=== PATIENT | male | born 1980 | race Caucasian/White ===

== ENCOUNTER 2017-06-13 19:25 | Emergency (ER) | payer SELFPAY ==
[~2017-06-13] VITALS: Ht 167.6 cm; Wt 86.4 kg
[2017-06-13] MEDS ORDERED: OxyCODONE HCL/ACETAMINOPHEN 5-325 MG TABLET PO ONE (21:00)
[2017-06-13] MEDS ORDERED: LIDOCAINE HCL 1%/EPI 1:200,000/PF 10 ML VIAL INJ ONE (21:00)
[2017-06-13] MEDS ORDERED: CLINDAMYCIN HCL 150 MG CAPSULE PO ONE (21:00)
[2017-06-13 21:22] VITALS: BP 130/79
== END 2017-06-13 21:26 | disposition home or self-care (01) ==
LOC: EMS 19:27
DX: K04.7 Periapical abscess without sinus (principal); F17.210 Nicotine dependence, cigarettes, uncomplicated
CPT/HCPCS: 64400; 99284; J3490